=== PATIENT | female | born 1965 | race Caucasian/White ===

== ENCOUNTER 2023-04-02 08:00 | Inpatient (IN) | payer OTHER ==
[~2023-04-02] VITALS: Ht 162.6 cm; Wt 77.1 kg
[2023-04-02 09:06] LABS: PH,URINE 5.5 (5.0-8.0); URINE APPEARANCE Clear; URINE BILIRRUBIN Negative (NEGATIVE); URINE BLOOD Negative; URINE COLOR Yellow; URINE GLUCOSE Negative (NEGATIVE); URINE LEUKOCYTE Negative; URINE NITRATE Negative; URINE PROTEIN Negative (NEGATIVE); URINE UROBILINOGEN 0.2 E.U./dl
[2023-04-02] MEDS ORDERED: METFORMIN HCL500 M3 PO (09:07)
[2023-04-02 09:08] LABS: HEMATOCRIT 37.2 % (36.0-45.00); HEMOGLOBIN 12.7 g/dL (12.0-15.00); MEAN CELL VOLUME 85.6 fL (80.00-100.00); MEAN CORPUSCULAR HEMOGLOBIN 29.1 pg (27.00-32.0); PLATELET COUNT 167 K/uL (150-450); RED BLOOD COUNT 4.34 M/uL (4.00-6.00); RED CELL DISTRIBUTION WIDTH 12.6 % (11.5-14.5)
[2023-04-02] MEDS ORDERED: PRILOSEC10 MG PO (09:08)
[2023-04-02] MEDS ORDERED: ZESTRIL5 MG PO (09:08)
[2023-04-02] MEDS ORDERED: PEPCID40 MG PO (09:08)
[2023-04-02 09:09] LABS: URINE BACTERIA 8.8 uL (0.0-1933); URINE EPITHELIAL CELLS 13.8 uL (0.0-38.8); URINE WBC 5.2 uL (0.0-23.2)
[2023-04-02] MEDS ORDERED: LIPITOR20 MG PO (09:09)
[2023-04-02] MEDS ORDERED: MOBIC7.5 MG PO (09:09)
[2023-04-02] MEDS ORDERED: ZANAFLEX6 MG PO (09:09)
[2023-04-02] MEDS ORDERED: ZYRTEC10 M3 PO (09:09)
[2023-04-02] MEDS ORDERED: HORIZANT600 MG PO (09:10)
[2023-04-02] MEDS ORDERED: SINGULAIR10 MG PO (09:10)
[2023-04-02 09:11] LABS: URINE RBC 1.2 uL (0.0-20.8)
[2023-04-02 09:33] LABS: BILIRUBIN TOTAL 0.45 mg/dL (0.3-1.2); CALCIUM 9.3 mg/dL (8.5-10.1); CREATININE SERUM 0.53 mg/dL (0.55-1.02); GFR 118.9; GLOBULINA 3.3 G/DL (2.4-3.5); POTASSIUM 4.21 mEq/L (3.5-5.1); TOTAL PROTEIN 7.3 gm/dL (6.4-8.2)
[2023-04-02 09:39] LABS: INR 0.98; PARTIAL THROMBOPLASTIN TIME 25.9 SECONDS (22.0-34.0); PROTHROMBIN TIME 10.3 SECONDS (9.0-11.5)
[2023-04-17 07:05] LABS: HEMATOCRIT 31.3 % (36.0-45.00); HEMOGLOBIN 10.7 g/dL (12.0-15.00); MEAN CELL VOLUME 84.7 fL (80.00-100.00); MEAN CORPUSCULAR HGB CONC 34.3 g/dl (32.0-36.0); RED CELL DISTRIBUTION WIDTH 12.9 % (11.5-14.5)
[2023-04-17 07:34] LABS: PLATELET COUNT 129 K/uL (150-450)
[2023-04-18 06:52] LABS: HEMOGLOBIN 10.3 g/dL (12.0-15.00); MEAN CELL VOLUME 84.9 fL (80.00-100.00); MEAN CORPUSCULAR HEMOGLOBIN 29.2 pg (27.00-32.0); MEAN CORPUSCULAR HGB CONC 34.3 g/dl (32.0-36.0); RED BLOOD COUNT 3.54 M/uL (4.00-6.00)
[2023-04-18 07:09] LABS: PLATELET COUNT 122 K/uL (150-450)
== END 2023-04-18 14:27 | DRG 470 ==
LOC: SURH 04-09 08:00 → O/R 04-16 08:30 → SURG 04-16 14:52
PROVIDERS: ADMIT Orthopaedic Surgery; ATTEND Orthopaedic Surgery
PROC: 0SRC0JZ Replacement of Right Knee Joint with Synthetic Substitute, Open Approach (ICD-10-PCS; principal; 2023-04-16 14:30)
DX: M17.11 Unilateral primary osteoarthritis, right knee (principal); D62 Acute posthemorrhagic anemia; M85.661 Other cyst of bone, right lower leg